=== PATIENT | male | born 1940 | race African-American/Black ===

== ENCOUNTER 2017-10-30 16:41 | Observation (INO) | payer MEDICARE ==
[2017-10-30] MEDS ORDERED: Ondansetron HCl/PF 4 MG/2 ML Vial IVP PRN (17:08)
[2017-10-30] MEDS ORDERED: Acetaminophen 325 MG TAB PO PRN (17:08)
[2017-10-30] MEDS ORDERED: Ondansetron ODT 4 MG TAB SL PRN (17:08)
[2017-10-30 17:10] VITALS: BMI 32.1
[2017-10-30] MEDS ORDERED: Nitroglycerin 2% Ointment 1 INCH/1 GM Packet TOP SCH (17:15)
[2017-10-30] MEDS ORDERED: Aspirin 325 MG TAB PO SCH (17:15)
[2017-10-30 18:28] LABS: CKMB 1.5 ng/mL (0-6.6); Troponin I 0.028 ng/mL (< 0.028)
[2017-10-30 19:32] LABS: Anion Gap 12 mmol/L (10-20); BUN (Urea Nitrogen) 14 mg/dL (8.4-25.7); Calc. Creatinine Clearance 54 mL/min (70-130); Calcium 9.3 mg/dL (7.8-10.44); Carbon Dioxide 24 mmol/L (23-31); Chloride 107 mmol/L (98-107); Estimated GFR-MDRD 49; Glucose 92 mg/dL (83-110); Potassium 3.4 mmol/L (3.5-5.1)
[2017-10-30 19:40] LABS: Sodium 140 mmol/L (136-145)
[2017-10-30 19:42] LABS: Anisocytosis SLIGHT = 6-15 cells (100X) (0-5/hpf); Band 1 % (5-11); Hemoglobin 17.4 g/dL (14.0-18.0); Lymphocytes 7 % (21-51); MDiff Complete? YES; Mean Corpuscular HGB CONC 33.5 g/dL (32.0-36.0); Mean Corpuscular Hemoglobin 29.5 pg (27.0-31.0); Mean Platelet Volume 8.2 fL (7.4-10.4); Monocytes 5 % (0-10); Neutrophil 87 % (42-75); PLT Morphology Comment Appears Adequate; Platelet Count 198 thou/uL (130-400); RBC Distribution Width 16.3 % (11.5-14.5); Red Blood Cell (RBC) Count 5.88 mill/uL (4.70-6.10); White Blood Cell (WBC) Count 9.8 thou/uL (4.8-10.8)
[2017-10-30] MEDS ORDERED: Meclizine HCl 12.5 MG TAB PO PRN (20:33)
[2017-10-30] MEDS ORDERED: Prevnar 13-Val Conj/PF 0.5 ML SYRINGE IM ONE (21:00)
[2017-10-30] MEDS: Rosuvastatin 10 MG TAB PO SCH (21:25)
[2017-10-30 22:21] LABS: CKMB 1.7 ng/mL (0-6.6); Troponin I 0.028 ng/mL (< 0.028)
[2017-10-30 23:36] LABS: Bilirubin Negative (Negative); Blood, Urine Negative (Negative); Clarity CLEAR (Clear); Glucose, Urine (Dipstick) Negative (Negative); Leukocyte Small (Negative); Nitrite Negative (Negative); Protein, Urine (Dipstick) Trace mg/dL (Neg-Trace); Specific Gravity, Urine 1.009 (1.002-1.036); pH, Urine 5.5 (5.0-9.0)
[2017-10-30 23:38] LABS: Bacteria/HPF None Seen HPF (None Seen); Hyaline Casts/LPF 0-3 HYALINE CAST LPF (0-3 Hyaline); Pathc Cast-AUWi Flag 0.14 (0-2.49); RBC/HPF 0-3 HPF (0-3); Squamous Epithelial 0-3 HPF (0-3)
[2017-10-31 04:34] LABS: #Basophils 0.1 thou/uL (0.0-0.2); #Eosinphils 0.1 thou/uL (0.0-0.7); #Lymphocytes 1.7 thou/uL (1.20-3.40); #Neutrophils 5.9 thou/uL (1.40-6.50); %Basophils 0.9 % (0.0-1.0); %Lymphocytes 19.9 % (21.0-51.0); %Neutrophils 67.1 % (42.0-75.0); Hemoglobin 16.9 g/dL (14.0-18.0); Mean Corpuscular HGB CONC 33.1 g/dL (32.0-36.0); Mean Corpuscular Hemoglobin 29.3 pg (27.0-31.0); Mean Corpuscular Volume 88.4 fL (78.0-98.0); Mean Platelet Volume 8.9 fL (7.4-10.4); Platelet Count 199 thou/uL (130-400); RBC Distribution Width 16.1 % (11.5-14.5); Red Blood Cell (RBC) Count 5.78 mill/uL (4.70-6.10); White Blood Cell (WBC) Count 8.7 thou/uL (4.8-10.8)
[2017-10-31 04:43] LABS: Anion Gap 16 mmol/L (10-20); BUN (Urea Nitrogen) 15 mg/dL (8.4-25.7); Calc. Creatinine Clearance 58 mL/min (70-130); Carbon Dioxide 18 mmol/L (23-31); Cardiac Risk 4.4 (Less than 4.5); Chloride 109 mmol/L (98-107); Cholesterol 151 mg/dl (< 200 Desired); Estimated GFR-MDRD 52; Glucose 94 mg/dL (83-110); HDL Cholesterol 34 mg/dL (>60 Neg Risk); LDL Cholesterol, Calculated 104 mg/dL; Potassium 3.6 mmol/L (3.5-5.1); Sodium 139 mmol/L (136-145); Triglycerides 66 mg/dL (Less than 150)
[2017-10-31] MEDS ORDERED: ADENOSINE 60 MG/20 ML VIAL ONE (08:24)
[2017-10-31] MEDS: Enoxaparin Sodium 30 MG/0.3 ML SYRINGE SC SCH (10:13)
--- NOTE | 2017-10-31 15:46 | PDOC.PN ---
- Subjective Encounter Start Date: 10/31/17 Encounter Start Time: 15:00 Subjective: nsg notes rev, estefani ovn, dizziness sig improved, @ bedside inquiring -: about a stress test for the patient - Objective Resuscitation Status: Resuscitation Status FULL:Full Resuscitation Vital Signs & Weight: Vital Signs (12 hours) Temp Pulse Pulse Pulse Resp BP BP 10/31/17 11:25 98.5 F 88 12 10/31/17 09:15 80 59 L 140/76 173/79 H 10/31/17 07:25 98.9 F 62 16 10/31/17 04:04 98.4 F 58 L 18 BP BP BP BP Pulse Ox 10/31/17 11:25 145/70 H 95 10/31/17 09:15 10/31/17 07:25 138/63 95 10/31/17 04:04 151/74 H 140/69 132/65 94 L Weight Weight 230 lb I&O: 10/30/17 10/31/17 11/01/17 06:59 06:59 06:59 Intake Total 360 Balance 360 Result Diagrams: 11/01/17 03:41 11/01/17 03:41 Dx/Plan - Plan * dizziness * sig improved with symptomatic management * cardiac eval so far neg, t/c stress test given risk factors - d/w pt and his @ bedside the risks and benefits * pt's also states she is unable to transport the patient home today
--- NOTE | 2017-10-31 17:03 | NM ---
NUCLEAR MEDICINE CARDIAC MYOCARDIAL PERFUSION SPECT EJECTION FRACTION STUDY WALL MOTION CINE: DATE: 10-31-17 HISTORY: 77-year-old hypertensive male with dyslipidemia presents with chest pain. TECHNIQUE: Number of days: 1 Rest study: Tc99m sestamibi (Cardiolite) dose: 10.0 mCi Pharmacologic stress: adenosine dose: 58.2 mg Stress study: Tc99m sestamibi (Cardiolite) dose: 27.0 mCi FINDINGS: CARDIAC (MYOCARDIAL PERFUSION) SPECT Distribution of sestamibi is homogeneous throughout the left ventricle, with no fixed or reversible m yocardial perfusion defects. EJECTION FRACTION STUDY EF = 63% WALL MOTION CINE The left ventricular wall motion is normal. There is normal systolic wall thickening. IMPRESSION: Normal. jaret POS: [facility]ESLA[facility]
--- NOTE | 2017-10-31 18:01 | PDOC.EVN ---
Event Note - Event Note Event Note: h&p [id number]
--- NOTE | 2017-10-31 18:30 | HP ---
PRIMARY CARE PHYSICIAN: Yahir Tucker M.D. CHIEF COMPLAINT: Dizziness. HISTORY OF PRESENT ILLNESS: This is a 77-year-old male with a known history of hypertension, hyperlipidemia, gastroesophageal reflux disease who presented with a chief complaint of dizziness that has been recurrent both yesterday and today. He endorses dizziness that comes and goes with a prior similar episode several years ago, but self-resolved. The patient presented today because it has been increasing in frequency and duration. Patient was initially seen in the [facility] and at that point in time was noted to have a troponin that was indeterminate and EKG demonstrating T-wave flattening without a prior for comparison. Given a heart score of 4, the patient was subsequently transferred to our facility for further evaluation for possible atypical chest pain. At the time of my evaluation, the patient is denying any active dizziness and denies any player in chest pain, chest pressure or diaphoresis accompanying the dizziness episodes. The episodes are not precipitated by activity reliably. They can occur both with activity and at rest. The patient is accompanied today by his significant other at bedside. REVIEW OF SYSTEMS: As per HPI. Constitutional: The patient feels that he may have gained approximately 5 pounds over the last month. Reports no fevers, no chills. Cardiovascular: As per above which is essentially negative: HEENT: Dizziness, described as the room spinning. No component of lightheadedness, no blurry vision, no headache. Respiratory: No congestion, no cough. No recent upper respiratory illness. No dyspnea with exertion. Gastrointestinal: Denies any nausea, vomiting, abdominal pain issues with diarrhea or constipation. Genitourinary: Denies any dysuria, changes in urinary frequency , quality, quantity or odor. Musculoskeletal: Denies any new myalgias or arthralgias. Remainder of the review of systems otherwise negative. PAST MEDICAL HISTORY: As noted above, hypertension, hyperlipidemia, gastroesophageal reflux disease. PAST SURGICAL HISTORY: Patient denies any known prior surgeries. FAMILY HISTORY: Denies any family history of cardiovascular disease or stroke. SOCIAL HISTORY: Patient has a significant other with him at bedside. Denies any alcohol, tobacco or illicit drug use. HOME MEDICATIONS: Include: 1. Crestor 10 mg p.o. daily. 2. Losartan 50 mg p.o. daily. 3. Pantoprazole 40 mg p.o. q.a.m. ALLERGIES: No known drug allergies. PHYSICAL EXAMINATION: GENERAL: The patient is awake, alert, appropriate, in no acute distress, lying in the hospital bed. HEENT: Normocephalic, atraumatic. Equal ocular motions are intact. Cranial nerves II-XII intact. No vertical or vertical or horizontal nystagmus noted. CARDIOVASCULAR: S1, S2. No murmurs, rubs or gallops. No carotid bruits. Pulses 2+ bilateral upper extremities, no pitting pedal edema. Pulses 2+ bilateral lower extremities as well. RESPIRATORY: Reasonable air movement. No wheezes, rales or rhonchi. No conversational dyspnea. Grossly clear to auscultation. ABDOMEN: Positive bowel sounds, soft, nontender to palpation. MUSCULOSKELETAL: Moving all 4 extremities independently. IMAGING: Chest x-ray 10/30/2017. Impression: "No acute abnormality. There are low lung volumes." LABORATORY: WBC 9.8, hemoglobin 17.4, hematocrit 51.8, platelets 198. Sodium 140, potassium 3.4, chloride 107, bicarbonate 24, BUN 14, creatinine 1.65, glucose 92, calcium 9.3. Troponin 0.05. UA is significant for small leukoesterase, 7-10 WBC. ASSESSMENT AND PLAN: A 77-year-old male presenting with chief complaint of dizziness. 1. Dizziness, unclear etiology. Start with symptomatic management and also check orthostatic vital signs in case there is a component of orthostasis contributing to his presentation. P.r.n. meclizine for symptomatic management. 2. Indeterminate troponin with a concerning EKG with T-wave flattening. Check serial troponins, obtain an EKG, repeat in the a.m., and check an echocardiogram. 3. History of hypertension. Continue the patient on his home regimen and closely monitor. 4. History of hyperlipidemia. Continue patient on his home Crestor, continue to monitor. 5. Gastroesophageal reflux disease, appears to be stable and continue on home pantoprazole. 6. Elevated creatinine, unclear if this is new for the patient and I suspect that it is new as the patient does not have a known history of acute renal insufficiency. Continue to closely monitor. If there fails to be improvement with IV hydration, discontinue the patient's losartan and replace with a different, less nephrotoxic antihypertensive regimen. 7. Diet: Cardiac. 8. Activity: As tolerated. 9. Deep venous thrombosis prophylaxis with heparin. MTDD
[2017-10-31] MEDS: Rosuvastatin 10 MG TAB PO SCH (20:14)
[2017-11-01 04:29] LABS: Anion Gap 14 mmol/L (10-20); BUN (Urea Nitrogen) 13 mg/dL (8.4-25.7); Calc. Creatinine Clearance 55 mL/min (70-130); Calcium 8.8 mg/dL (7.8-10.44); Carbon Dioxide 21 mmol/L (23-31); Chloride 108 mmol/L (98-107); Estimated GFR-MDRD 50; Glucose 91 mg/dL (83-110); Potassium 3.4 mmol/L (3.5-5.1); Sodium 140 mmol/L (136-145)
[2017-11-01 04:33] LABS: #Basophils 0.1 thou/uL (0.0-0.2); #Eosinphils 0.1 thou/uL (0.0-0.7); #Lymphocytes 2.1 thou/uL (1.20-3.40); %Basophils 0.8 % (0.0-1.0); %Eosinophils 1.9 % (0.0-10.0); %Lymphocytes 29.3 % (21.0-51.0); %Monocytes 13.4 % (0.0-10.0); %Neutrophils 54.7 % (42.0-75.0); Hemoglobin 16.5 g/dL (14.0-18.0); Mean Corpuscular HGB CONC 33.4 g/dL (32.0-36.0); Mean Corpuscular Hemoglobin 29.3 pg (27.0-31.0); Mean Corpuscular Volume 87.9 fL (78.0-98.0); Mean Platelet Volume 8.1 fL (7.4-10.4); Platelet Count 199 thou/uL (130-400); Red Blood Cell (RBC) Count 5.63 mill/uL (4.70-6.10); White Blood Cell (WBC) Count 7.2 thou/uL (4.8-10.8)
[2017-11-01] MEDS: Enoxaparin Sodium 30 MG/0.3 ML SYRINGE SC SCH (09:01)
--- NOTE | 2017-11-01 11:37 | DIS ---
DATE OF ADMISSION: 10/30/2017 DATE OF DISCHARGE: 11/01/2017 PRIMARY CARE PHYSICIAN: Yahir Tucker M.D. DISCHARGE DIAGNOSES: 1. Dizziness, unclear etiology. 2. Essential hypertension. 3. Hyperlipidemia. 4. Gastroesophageal reflux disease. 5. Mild diastolic dysfunction. 6. Chronic kidney disease stage 3. CONSULTATIONS: None. PROCEDURES: 1. A 2D echocardiogram on 10/31/2017 that showed EF of 60% to 65%, grade 1-3 diastolic dysfunction w ith some mild valvular abnormalities. 2. A nuclear stress test was normal with an indeterminate EKG, but unchanged. HISTORY AND PHYSICAL: Mr. Valdez is a 77-year-old gentleman with the above history who presented t o the emergency department at [facility] for 10 minutes of dizziness associated with elevated blood press ure. He presented to the emergency department, he was asymptomatic at that time and had normal vital signs and labs and was transferred here for further workup. BRIEF HOSPITAL COURSE: The patient was seen and examined by Dr. Schrader and placed in observation. Ser ial cardiac biomarkers were obtained that initially went from normal to an indeterminate at 0.05, the n back to normal. A 2D echocardiogram was done and stress test was done with the above results. The patient remained asymptomatic and had negative telemetry and negative orthostatics. He is otherwise stable for discharge with outpatient followup. PHYSICAL EXAMINATION: The patient was seen and examined on the day of discharge. Discharge plan and disposition was discussed with the patient [id number] at the bedside. DISCHARGE MEDICATIONS: 1. Losartan 50 mg p.o. daily. 2. Protonix 40 mg daily. 3. Crestor 10 mg p.o. q.p.m. 4. Meclizine 12.5 mg p.o. b.i.d. p.r.n. dizziness, prescription for 60 tablets sent. FOLLOWUP APPOINTMENTS: Primary care physician within a week. DISCHARGE CONDITION: Stable. DISPOSITION: To be discharged to home via private vehicle with his . DISCHARGE ACTIVITY: Per, cardiopulmonary limits. DISCHARGE DIET: Heart healthy diet recommended.
[2017-11-01 11:56] VITALS: BP 139/70; TEMP 98.5
== END 2017-11-01 12:34 | disposition home or self-care (01) ==
LOC: 2SW 16:41
PROVIDERS: ADMIT Internal Medicine; ATTEND Internal Medicine
DX: R42 Dizziness and giddiness (principal); E78.5 Hyperlipidemia, unspecified; K21.9 Gastro-esophageal reflux disease without esophagitis; I12.9 Hypertensive chronic kidney disease with stage 1 through stage 4 chronic kidney disease, or unspecified chronic kidney disease; N18.3 Chronic kidney disease, stage 3 (moderate); Z79.899 Other long term (current) drug therapy
CPT/HCPCS: 78452; 80048 ×3; 80061; 81001; 82553; 84484; 85025 ×3; 90670; 93017; 93306; 94760; 96372 ×2; 97139 ×5; 97530; A9500; G0009; G0378; G0379; G8978; G8979; G8980; G8987; G8988; G8989; 36415; 90471; J0153; J1650